=== PATIENT | male | born 1950 | race African-American/Black ===

== ENCOUNTER 2017-07-14 14:20 | Emergency (ER) | payer MEDICARE, MEDICAID ==
[~2017-07-14] VITALS: Ht 165.1 cm; Wt 62.3 kg
[2017-07-14] MEDS ORDERED: ACETAMINOPHEN 325 MG TABLET PO ONE (16:45)
[2017-07-14] MEDS ORDERED: LORazepam 2 MG TABLET PO ONE (18:45)
[2017-07-14 18:52] VITALS: BP 124/70
[2017-07-15] MEDS ORDERED: NAPR250T2 PO (18:18)
[2017-07-15] MEDS ORDERED: PENI250T3 PO (18:18)
== END 2017-07-14 19:09 | disposition home or self-care (01) ==
LOC: EMS 14:22
DX: Z76.0 Encounter for issue of repeat prescription (principal); E11.9 Type 2 diabetes mellitus without complications; I10 Essential (primary) hypertension; I25.2 Old myocardial infarction; F17.210 Nicotine dependence, cigarettes, uncomplicated; Z91.011 Allergy to milk products; Z91.013 Allergy to seafood
CPT/HCPCS: 99283

== ENCOUNTER 2017-07-15 17:46 | Emergency (ER) | payer MEDICARE, MEDICAID ==
[~2017-07-15] VITALS: Ht 165.1 cm; Wt 63.6 kg
[2017-07-15] MEDS ORDERED: PENI250T3 PO (18:18)
[2017-07-15] MEDS ORDERED: NAPR250T2 PO (18:18)
[2017-07-15] MEDS ORDERED: IBUPROFEN 800 MG TABLET PO ONE (20:30)
[2017-07-15 21:05] VITALS: BP 128/68
== END 2017-07-15 21:06 | disposition home or self-care (01) ==
LOC: EMS 17:58
DX: S93.402A Sprain of unspecified ligament of left ankle, initial encounter (principal); S80.02XA Contusion of left knee, initial encounter; E11.9 Type 2 diabetes mellitus without complications; I10 Essential (primary) hypertension; I25.2 Old myocardial infarction; F17.210 Nicotine dependence, cigarettes, uncomplicated; W19.XXXA Unspecified fall, initial encounter; Y93.89 Activity, other specified; Y92.89 Other specified places as the place of occurrence of the external cause; Y99.8 Other external cause status
CPT/HCPCS: 99282